=== PATIENT | male | born 1950 | race Two or more races ===

== ENCOUNTER 2016-06-11 10:11 | Outpatient (CLI) | payer MEDICARE, MEDICAID ==
[~2016-06-11 10:11] MED LIST: AMLO10TA2 PO; CARV6.252 PO
[2016-06-11 13:25] LABS: CALCIUM, SERUM 9.5 mg/dL (8.5-10.1); CREATININE 2.3 mg/dL (0.6-1.3); POTASSIUM 4.6 mmol/L (3.5-5.1)
== END 2016-06-11 23:59 | disposition home or self-care (01) ==
LOC: LAB 10:11
PROVIDERS: ATTEND Internal Medicine Interventional Cardiology
DX: I50.9 Heart failure, unspecified (principal)
CPT/HCPCS: 36415; 80048-TC

== ENCOUNTER 2016-07-09 09:58 | Outpatient (CLI) | payer MEDICARE, MEDICAID ==
[2016-07-09 10:45] LABS: CALCIUM, SERUM 9.3 mg/dL (8.5-10.1); CREATININE 2.3 mg/dL (0.6-1.3); POTASSIUM 4.5 mmol/L (3.5-5.1)
== END 2016-07-09 23:59 | disposition home or self-care (01) ==
LOC: LAB 09:58
PROVIDERS: ATTEND Internal Medicine Interventional Cardiology
DX: I50.9 Heart failure, unspecified (principal)
CPT/HCPCS: 36415; 80048-TC

== ENCOUNTER 2016-08-08 10:21 | Outpatient (CLI) | payer MEDICARE, MEDICAID ==
[2016-08-08 11:15] LABS: CALCIUM, SERUM 9.3 mg/dL (8.5-10.1); CREATININE 2.8 mg/dL (0.6-1.3); POTASSIUM 4.7 mmol/L (3.5-5.1)
== END 2016-08-08 23:59 | disposition home or self-care (01) ==
LOC: LAB 10:21
PROVIDERS: ATTEND Internal Medicine Interventional Cardiology
DX: I50.9 Heart failure, unspecified (principal)
CPT/HCPCS: 36415; 80048-TC

== ENCOUNTER 2016-08-22 09:23 | Outpatient (CLI) | payer MEDICARE, MEDICAID ==
[2016-08-22 09:52] LABS: CALCIUM, SERUM 9.3 mg/dL (8.5-10.1); CREATININE 2.8 mg/dL (0.6-1.3); POTASSIUM 4.6 mmol/L (3.5-5.1)
== END 2016-08-22 23:59 | disposition home or self-care (01) ==
LOC: LAB 09:23
PROVIDERS: ATTEND Internal Medicine Interventional Cardiology
DX: I10 Essential (primary) hypertension (principal); E78.5 Hyperlipidemia, unspecified
CPT/HCPCS: 36415; 80048-TC

== ENCOUNTER 2016-09-11 09:27 | Outpatient (CLI) | payer MEDICARE, MEDICAID ==
[2016-09-11 10:23] LABS: CREATININE 2.5 mg/dL (0.6-1.3); POTASSIUM 4.5 mmol/L (3.5-5.1)
== END 2016-09-11 23:59 | disposition home or self-care (01) ==
LOC: LAB 09:27
PROVIDERS: ATTEND Internal Medicine Interventional Cardiology
DX: I10 Essential (primary) hypertension (principal); E78.5 Hyperlipidemia, unspecified
CPT/HCPCS: 36415; 80048-TC

== ENCOUNTER 2016-10-30 10:52 | Outpatient (CLI) | payer MEDICARE, MEDICAID ==
[2016-10-30 12:29] LABS: CALCIUM, SERUM 8.9 mg/dL (8.5-10.1); CREATININE 2.3 mg/dL (0.6-1.3); POTASSIUM 3.3 mmol/L (3.5-5.1)
== END 2016-10-30 23:59 | disposition home or self-care (01) ==
LOC: LAB 10:52
PROVIDERS: ATTEND Internal Medicine Interventional Cardiology
DX: I11.0 Hypertensive heart disease with heart failure (principal); I50.9 Heart failure, unspecified
CPT/HCPCS: 36415; 80048-TC

== ENCOUNTER 2017-03-05 08:52 | Outpatient (CLI) | payer MEDICARE, MEDICAID ==
[2017-03-05 09:30] LABS: CALCIUM, SERUM 9.3 mg/dL (8.5-10.1); CREATININE 1.9 mg/dL (0.6-1.3); POTASSIUM 3.7 mmol/L (3.5-5.1)
== END 2017-03-05 23:59 | disposition home or self-care (01) ==
LOC: LAB 08:52
PROVIDERS: ATTEND Internal Medicine Interventional Cardiology
DX: I50.22 Chronic systolic (congestive) heart failure (principal)
CPT/HCPCS: 36415; 80048-TC

== ENCOUNTER 2017-04-29 10:10 | Inpatient (IN) | payer MEDICARE, MEDICAID ==
[~2017-04-29] VITALS: Ht 167.6 cm; Wt 61.7 kg
--- NOTE | 2017-04-29 10:26 | NUR ---
PATIENT TO ED DT SOB X 3 DAYS. PT RECEIVED AAO4. APPEARS IN NO APPAREST DISTRESS. PATIENT SATING 89% ON ROOM AIR. SKIN IS WARM TO TOUCH AND NON DIAPHORETIC. AFEBRILE. PATIENT WAS PLACED ON O2 VIA NC @3LPM. GOWNED PT. PENDING MD LÓPEZ
--- NOTE | 2017-04-29 10:33 | NUR ---
DANCE INSTRUCTOR AT BEDSIDE FOR BLOOD DRAW
[2017-04-29 10:43] LABS: BASOPHILS % (AUTO) 0.4 % (0.0-2.0); EOSINOPHILS # (AUTO) 0.1 /CMM (0.0-0.7); EOSINOPHILS % (AUTO) 0.9 % (0.0-6.0); HEMATOCRIT 31 % (39-51); HEMOGLOBIN 10.2 g/dL (13.5-17.5); LYMPHOCYTES # (AUTO) 0.7 /CMM (0.8-4.8); LYMPHOCYTES % (AUTO) 10.5 % (20.0-44.0); MEAN CORPUSCULAR HEMOGLOBIN 23 PG (26.0-33.0); MEAN CORPUSCULAR HGB CONC 33 g/dl (31.0-36.0); MEAN CORPUSCULAR VOLUME 72 fL (80-96); NEUTROPHILS # (AUTO) 5.1 /CMM (1.8-8.9); NEUTROPHILS % (AUTO) 74.2 % (43.0-81.0); PLATELET COUNT (AUTO) 349 /CMM (150-450); RDW COEFFICIENT OF VARIATION 18.2 (11.5-15.0); RED BLOOD CELL COUNT(AUTO) 4.34 MIL/uL (4.5-6.0); WHITE BLOOD COUNT (AUTO) 6.9 K/uL (4.3-11.0)
[2017-04-29 11:00] LABS: TROPONIN I 0.058 ng/mL (0.00-0.056)
[2017-04-29 11:02] LABS: INR 1.1 (0.87-1.13); PROTHROMBIN TIME 11.4 SECS (9.5-12.7)
[2017-04-29 11:08] LABS: ALBUMIN 2.6 g/dL (3.4-5.0); BILIRUBIN,DIRECT 0.4 mg/dL (0.0-0.2); BILIRUBIN,TOTAL 0.9 mg/dL (0.2-1.0); CALCIUM, SERUM 9.2 mg/dL (8.5-10.1); CREATININE 1.8 mg/dL (0.6-1.3); POTASSIUM 3.7 mmol/L (3.5-5.1)
[2017-04-29] MEDS ORDERED: ATOR80TA PO (11:24)
[2017-04-29] MEDS ORDERED: CARV25TA2 PO (11:24)
[2017-04-29] MEDS ORDERED: EZET10TA14 PO (11:24)
[2017-04-29] MEDS ORDERED: ISOS20TA8 PO (11:24)
[2017-04-29] MEDS ORDERED: ASPI-1152 PO (11:24)
[2017-04-29] MEDS ORDERED: CLOP75TA15 PO (11:24)
[2017-04-29] MEDS ORDERED: AMIO100T4 PO (11:24)
[2017-04-29] MEDS ORDERED: SERT50TA PO (11:24)
[2017-04-29] MEDS ORDERED: HYDR100T27 PO (11:24)
[2017-04-29 11:48] LABS: BAND % (MANUAL) 1 % (0.0-5.0); LYMPHOCYTES % (MANUAL) 7 % (16-48); MONOCYTES % (MANUAL) 8 % (0-11.0); NEUTROPHILS % (MANUAL) 84 (42-76)
--- NOTE | 2017-04-29 12:19 | NUR ---
PAGED EPIC FOR PANEL - DR RODRIGUEZ
--- NOTE | 2017-04-29 12:27 | NUR ---
[address] [facility] BED
[2017-04-29] MEDS ORDERED: ALBUTEROL FS 2.5 MG/3 ML VIAL.NEB CONTNEB ONE (12:30)
[2017-04-29] MEDS ORDERED: IPRATROPIUM NEB FS 0.5 MG/2.5 ML AMPUL.NEB NEB ONE (12:30)
[2017-04-29] MEDS ORDERED: FUROSEMIDE 20 MG/2 ML VIAL IV ONE (12:30)
[2017-04-29] MEDS ORDERED: predniSONE 20 MG TABLET PO ONE (12:30)
--- NOTE | 2017-04-29 12:54 | NUR ---
[id number]
[2017-04-29] MEDS: AMIODARONE HCL 200 MG TABLET PO SCH (12:56)
[2017-04-29] MEDS ORDERED: ALBUTEROL FS 2.5 MG/0.5 ML VIAL.NEB NEB PRN (13:00)
[2017-04-29] MEDS ORDERED: FUROSEMIDE 40 MG/4 ML VIAL IV ONE (13:00)
[2017-04-29] MEDS ORDERED: FUROSEMIDE 20 MG/2 ML VIAL ONE (13:05)
[2017-04-29] MEDS ORDERED: predniSONE 20 MG TABLET ONE (13:05)
[2017-04-29] MEDS ORDERED: ALBUTEROL FS 2.5 MG/0.5 ML VIAL.NEB ONE (13:14)
--- NOTE | 2017-04-29 13:14 | NUR ---
REPORT GIVEN TO EMELIA
[2017-04-29 14:00] VITALS: BP 130/65
--- NOTE | 2017-04-29 14:00 | NUR ---
RECEIVED PT. ALERT AND ORIENTED X4,EQUATORIAL GUINEAN SPEAKING.O2 ON 3L.
--- NOTE | 2017-04-29 14:10 | NUR ---
PT. REFUSED TO TAKE OFF LONG PANTS AND REFUSED SKIN CHECK.
[2017-04-29] MEDS: ISOSORBIDE DINITRATE (20MG) 20 MG TABLET PO SCH ×2 (15:17→17:00)
[2017-04-29 16:00] VITALS: BP 97/42
--- NOTE | 2017-04-29 16:00 | NUR ---
PT,S POX TO 90% O2 UP TO 5L TEMPORARILY.HOB ELEVATED.GIVEN ISORDIL SHORTLY BEFORE ORDERED,NOW BP A LITTLE LOW.RESP. TX CONTACTED BREATHING TX DONE.FAMILY AT BEDSIDE.
--- NOTE | 2017-04-29 16:10 | NUR ---
HUMIDIFICATION NOW ADDED TO O2.PT. SEEMS A LITTLE BETTER AFTER BREATHING TX.TAX ASSISTANT INFORMED.CONT. POX ON RANGING FROM 92% TO 96%.
[2017-04-29] MEDS: IPRATROPIUM NEB FS 0.5 MG/2.5 ML AMPUL.NEB NEB SCH ×3 (16:12→23:59)
[2017-04-29] MEDS: ALBUTEROL HALF STRENGTH 1.25 MG/3 ML VIAL.NEB NEB SCH ×3 (16:13→23:59)
[2017-04-29] MEDS: hydrALAZINE HCL 50 MG TABLET PO SCH (17:00)
[2017-04-29] MEDS ORDERED: FUROSEMIDE 20 MG/2 ML VIAL IV SCH (17:00)
[2017-04-29] MEDS: methylPREDNISolone SOD SUCC 125 MG/2ML VIAL IV SCH ×2 (17:18→21:04)
--- NOTE | 2017-04-29 17:30 | NUR ---
NO SPUTUM PRODUCTION,A LITTLE MORE RELAXED. CONSENT SIGNED FOR THORACENTESIS.
--- NOTE | 2017-04-29 19:30 | NUR ---
SENIOR ORACLE APPLICATIONS DEVELOPER NOTES BREATHING TREATMENT
--- NOTE | 2017-04-29 19:45 | NUR ---
TRIMMER LOADER NOTES RECEIVED ON BED ON HIGH FOWLERS POSITION,BREATHING NO LABORED, O2 4L.NC IN USED,A/O X3,SALINE LOCK RFA INTACT AND PATENT.GOING FOR ULTRASOUND GUIDED THORACENTESIS TOMORROW DUE BILATERAL PLEURAL EFFUSION.CONSENT ON CHART.FAMILY MEMBER AT BEDSIDE.CALL LIGHT IN REACH,NEEDS ANTICIPATED.
[2017-04-29 20:00] VITALS: BP 124/63
--- NOTE | 2017-04-29 20:00 | NUR ---
DIRECTOR SALES SUPPORT NOTES SR WITH BBB -[address] TE[address] DR CUEVA WAS PAGE FOR SLEEPING PILL ORDER. ORDERED AMBIEN 10MG PO PATIENT TAKING IT AT HOME AND FAMILY REQUEST.
[2017-04-29] MEDS: CARVEDILOL 12.5 MG TABLET PO SCH (21:04)
[2017-04-29] MEDS: ZOLPIDEM TARTRATE 10 MG TABLET PO PRN (22:46)
--- NOTE | 2017-04-29 22:46 | NUR ---
MULTIFOCAL LENS INSPECTOR NOTES C/O INSOMNIA,AMBIEN 10MG PO ADMINISTERED ORDER.
--- NOTE | 2017-04-29 23:59 | NUR ---
MS RN NOTES BREATHING TREATMENT
[2017-04-30] VITALS: BP 124/52
--- NOTE | 2017-04-30 03:00 | NUR ---
BRICK OFF BEARER NOTES PATIENT REFUSE TO BE BOTHER WHEN HIS SLEEPING,BREATHING TREATMENT NON ADMINISTERED
[2017-04-30] MEDS: ALBUTEROL HALF STRENGTH 1.25 MG/3 ML VIAL.NEB NEB SCH ×6 (03:30→23:58)
[2017-04-30] MEDS: IPRATROPIUM NEB FS 0.5 MG/2.5 ML AMPUL.NEB NEB SCH ×6 (03:30→23:58)
[2017-04-30] MEDS: methylPREDNISolone SOD SUCC 125 MG/2ML VIAL IV SCH (05:25)
--- NOTE | 2017-04-30 05:30 | NUR ---
MS RN NOTES DUE SOLU-MEDROL 60MG IV ADMINISTERED.
--- NOTE | 2017-04-30 06:19 | NUR ---
LEAD MAN OVER ALL DIES IN PATTERN SHOP NOTES SLEPT WELL WITH ARIEL,NO FALL ,NO INJURY,NO SOB NOTED,CALL LIGHT IN REACH,WILL CONTINUE TO MONITOR RESPIRATORY STATUS AND MANAGE ACCORDINGLY.WILL ENDORSE TO DAY NURSE FOR ALEX.
--- NOTE | 2017-04-30 07:10 | NUR ---
DESIGN ENGINEER PRODUCTS NOTES PATIENT ALERT AND ORIENTED X4, BREATHING EVEN AND UNLABORED, NO SOB NOTED, DENIES PAIN AT THIS TIME. NEEDS ATTENDED, KEPT COMFORTABLE. CALL LIGHT WITHIN REACH, SAFETY MEASURES IN PLACED, WILL CONTINUE TO MONITOR.
[2017-04-30 08:00] VITALS: BP 133/66
[2017-04-30] MEDS ORDERED: SERTRALINE HCL 50 MG TABLET PO SCH (09:00)
[2017-04-30] MEDS ORDERED: ASPIRIN EC 81 MG TABLET.DR PO SCH (09:00)
[2017-04-30] MEDS ORDERED: FUROSEMIDE 40 MG/4 ML VIAL IV ONE (09:00)
[2017-04-30] MEDS: CLOPIDOGREL BISULFATE 75 MG TABLET PO SCH (09:55)
[2017-04-30] MEDS: EZETIMIBE 10 MG TABLET PO SCH (09:55)
[2017-04-30] MEDS: ISOSORBIDE DINITRATE (20MG) 20 MG TABLET PO SCH ×3 (09:56→17:31)
[2017-04-30] MEDS: CARVEDILOL 12.5 MG TABLET PO SCH ×2 (09:56→20:42)
[2017-04-30] MEDS: hydrALAZINE HCL 50 MG TABLET PO SCH ×3 (09:56→17:31)
[2017-04-30] MEDS: AMIODARONE HCL 200 MG TABLET PO SCH (09:56)
--- NOTE | 2017-04-30 10:02 | NUR ---
ELECTRICAL ASSISTANT NOTES PATIENT PREFERS ASPIRIN AND SERTRALINE TO BE GIVEN AT BEDTIME. PER PATIENT HE TAKES IT AT 9PM AT HOME. DR. RODRIGUEZ MADE AWARE. RECEIVED ORDER TO CHANGE TIME. Addendum: 04/30/17 at 1007 by MAGO MALCOLM RN ADDENDUM: ASA 81 AND SERTRALINE WASTED, WITNESSED BY ANOTHER RN, JUAN SOLANO.
--- NOTE | 2017-04-30 10:15 | NUR ---
CORSETS SALESPERSON NOTES PER [employer], PATIENT'S PLAVIX NEEDS TO BE HELD 5 DAYS PRIOR TO US GUIDED THORACENTESIS. PATIENT RECEIVED PLAVIX DOSE THIS AM. INFORMED DR. RODRIGUEZ, PER MD, CHECK WITH RADIOLOGIST.CALLED [employer] AND LEFT A MESSAGE.
--- NOTE | 2017-04-30 12:00 | NUR ---
TUFTER HAND NOTES CALLED US TECH AGAIN TO FOLLOW UP RE: THORACENTESIS, NO ANSWER.
--- NOTE | 2017-04-30 15:13 | NUR ---
THORACENTESIS ON HOLD. PATIENT WAS GIVEN PLAVIX ON 04/30/17 IN THE AM. INFORMED ROSAVAE PLAVIX MUST BE HELD FOR 5 DAYS PRIOR TO PROCEDURE
[2017-04-30 16:00] VITALS: BP 130/91
--- NOTE | 2017-04-30 16:09 | NUR ---
INVENTORY WORKER NOTES CALLED US TECH, AND PAGED OVERHEAD. WAITING FOR A CALL BACK.
[2017-04-30] MEDS: FUROSEMIDE 20 MG TABLET PO SCH (17:31)
[2017-04-30] MEDS ORDERED: MENTHOL/CETYLPYRD (CEPACOL) 1 LOZ LOZENGE PO PRN (18:00)
--- NOTE | 2017-04-30 18:51 | NUR ---
FLYER BUILDER NOTES INFORMED DR. RODRIGUEZ PATIENT COMPLAINING OF SORE THROAT, RECEIVED ORDER FOR CEPACOL, ORDER NOTED AND CARRIED OUT. AWAITING FOR PHARMACY TO DELIVER MEDICATION. PATIENT ALERT AND ORIENTED X4, BREATHING EVEN AND UNLABORED, NO DISTRESS NOTED, KEPT SKIN CLEAN AND DRY, ALL NEEDS ATTENDED AND MET, CALL LIGHT WITHIN REACH, SAFETY MEASURES IN PLACED, WILL ENDORSE TO BOWSTRING MAKER FOR ALEX.
--- NOTE | 2017-04-30 19:03 | NUR ---
HEARING IMPAIRED TEACHER NOTES DR. WESTBROOK CAME AND DISCUSSED LUNG BIOPSY TO SON. PER SON, HE WILL TALK TO HIS SIBLING AND WILL DECIDE TOMORROW.
[2017-04-30 20:00] VITALS: BP 123/58
[2017-04-30] MEDS: SERTRALINE HCL 50 MG TABLET PO SCH (21:10)
[2017-04-30] MEDS: ATORVASTATIN 40 MG TABLET PO SCH (21:11)
[2017-04-30] MEDS: ASPIRIN 81 MG TAB.CHEW PO SCH (21:11)
[2017-04-30] MEDS: ZOLPIDEM TARTRATE 10 MG TABLET PO PRN (22:31)
[2017-05-01] VITALS: BP 117/58
[2017-05-01] MEDS: ALBUTEROL HALF STRENGTH 1.25 MG/3 ML VIAL.NEB NEB SCH ×6 (02:40→23:30)
[2017-05-01] MEDS: IPRATROPIUM NEB FS 0.5 MG/2.5 ML AMPUL.NEB NEB SCH ×6 (02:40→23:30)
--- NOTE | 2017-05-01 02:45 | NUR ---
RT PT REFUSED 0330 TX . PT WOULD LIKE TO GET SOME REST. NO SOB OR RESP DISTRESS NOTED AT THIS TIME.
[2017-05-01 04:00] VITALS: BP 135/59
--- NOTE | 2017-05-01 06:36 | NUR ---
INSTRUMENT REPAIRER STEAM PLANT NOTES AWAKE & RESPONSIVE. NOT IN ANY DISTRESS. NO SOB NOTED. DENIES ANY PAIN OR DISCOMFORT AT THIS TIME. ON TELE SR @ 78 WITH BBB WITH IV-HL PATENT & INTACT. MONITORED ACCORDINGLY. CALL LIGHT WITHIN REACH. BED IN LOWEST POSITION. SR UP X2 FOR SAFETY. WILL ENDORSE TO NEXT SHIFT.
--- NOTE | 2017-05-01 07:50 | NUR ---
MS RN RECEIVED ON BED, AWAKE,ALERT,ORIENTED X3,NOT IN ANY FORM OF DISTRESS, RESPIRATIONS EVEN AND UNLABORED,NO SOB NOTED, LUNGS ARE DIMINISH, ABDOMEN SOFT,POSITIVE BOWEL SOUNDS,DENIES PAIN AT THIS TIME, WILL MONITOR PATIENT'S CONDITION.
[2017-05-01 08:00] VITALS: BP 129/58
[2017-05-01] MEDS: CLOPIDOGREL BISULFATE 75 MG TABLET PO SCH (08:02)
[2017-05-01 08:08] LABS: FERRITIN 120 ng/mL (8-388)
[2017-05-01 08:18] LABS: IRON, SERUM 25 ug/dl (50-175); TOTAL IRON BINDING CAPACITY 316 ug/dl (250-450)
[2017-05-01] MEDS: methylPREDNISolone SOD SUCC 125 MG/2ML VIAL IV SCH (08:56)
[2017-05-01] MEDS: FUROSEMIDE 20 MG TABLET PO SCH (08:56)
[2017-05-01] MEDS: EZETIMIBE 10 MG TABLET PO SCH (08:56)
--- NOTE | 2017-05-01 09:00 | NUR ---
MS [place] BREAKFAST SERVED,DUE MEDS GIVEN,TOLERATED WELL.
[2017-05-01] MEDS: ISOSORBIDE DINITRATE (20MG) 20 MG TABLET PO SCH ×3 (09:01→17:00)
[2017-05-01] MEDS: CARVEDILOL 12.5 MG TABLET PO SCH ×2 (09:02→21:15)
[2017-05-01] MEDS: hydrALAZINE HCL 50 MG TABLET PO SCH ×3 (09:02→17:00)
[2017-05-01] MEDS: AMIODARONE HCL 200 MG TABLET PO SCH (09:02)
--- NOTE | 2017-05-01 09:30 | NUR ---
MS RN WAS SEEN BY DR. RODRIGUEZ, WANTS THE THORACENTESIS TO BE DONE TODAY.CALLED THE RADIOLOGY BUT MD DOES WANTS TO BE DONE TOMORROW AFTERNOON, DUE TO PLAVIX HAS BEEN GIVEN YESTERDAY.
--- NOTE | 2017-05-01 11:30 | NUR ---
MS RN ON BED W/ AT BEDSIDE, ALL NEEDS ATTENDED.
[2017-05-01 12:00] VITALS: BP 111/53
[2017-05-01 16:00] VITALS: BP 111/50
[2017-05-01] MEDS ORDERED: FUROSEMIDE 20 MG TABLET PO SCH (18:00)
--- NOTE | 2017-05-01 18:41 | NUR ---
MS RN ON BED, NO DISTRESS NOTED,WILL ENDORSE TO LENS GENERATOR FOR CONTINUITY OF CARE.
--- NOTE | 2017-05-01 19:40 | NUR ---
RN OPENING NOTES PT RESTING IN BED. SON AT BEDSIDE. NO COMPLAINTS OF PAIN, DISTRESS OR SOB AT THIS TIME. PT HAS A R FA IV, INTACT AND PATENT. PT IS ABLE TO AMBULATE SELF TO RESTROOM. PT IS SCHEDULED FOR THORACENTESIS AND BIOPSY 05/02/17 AFTERNOON. CONSENT IN CHART. SAFETY MEASURES IN PLACE. BED IN LOW LOCKED POSITION, 2XSIDERAILS UP. CALL LIGHT WITHIN REACH WILL CONTINUE TO MONITOR.
[2017-05-01 20:00] VITALS: BP 128/68
--- NOTE | 2017-05-01 20:00 | NUR ---
RN NOTES PER CHAIM MATHUR. PT REFUSED VITAL SIGNS (0000 AND 0400) Q4HR. PT STATED THAT HE WANTED UNDISTURBED SLEEP. PRIOR VITAL SIGNS WITHIN NORMAL RANGE. PT CONTINUES TO BE TELE MONITORED.
[2017-05-01] MEDS: SERTRALINE HCL 50 MG TABLET PO SCH (21:15)
[2017-05-01] MEDS: ATORVASTATIN 40 MG TABLET PO SCH (21:15)
[2017-05-01] MEDS: ASPIRIN 81 MG TAB.CHEW PO SCH (21:17)
[2017-05-01] MEDS: ZOLPIDEM TARTRATE 10 MG TABLET PO PRN (22:22)
--- NOTE | 2017-05-01 22:22 | NUR ---
RN NOTES PT REQUESTED AMBIEN FOR SLEEP. WILL ADMINISTER PRN AMBIEN 10MG. WILL CONTINUE TO MONITOR.
[2017-05-02] MEDS: ALBUTEROL HALF STRENGTH 1.25 MG/3 ML VIAL.NEB NEB SCH ×6 (03:30→23:21)
[2017-05-02] MEDS: IPRATROPIUM NEB FS 0.5 MG/2.5 ML AMPUL.NEB NEB SCH ×6 (03:30→23:21)
--- NOTE | 2017-05-02 04:18 | NUR ---
RT PT REQUESTED NOT TO BE WOKEN UP. TX HELD.
--- NOTE | 2017-05-02 06:56 | NUR ---
RN CLOSING NOTES PT SLEEPING IN BED. NO COMPLAINTS OF PAIN, DISTRESS OR SOB. PT TELE MONITORED SINUS RHYTHM WITH BBB AT A RATE OF 75. PT HAS A R FA IV, INTACT AND PATENT. PT IS ABLE TO AMBULATE SELF TO RESTROOM. PT IS SCHEDULED FOR THORACENTESIS AND BIOPSY DURING THE AFTERNOON (05/02/17). CONSENT IN CHART. SAFETY MEASURES IN PLACE. BED IN LOW LOCKED POSITION, 2XSIDERAILS UP. CALL LIGHT WITHIN REACH WILL ENDORSE TO DAY SHIFT NURSE FOR CONTINUITY OF CARE.
--- NOTE | 2017-05-02 07:51 | NUR ---
TELE/RN OPENING NOTE PATIENT IN BED IN STABLE CONDITION. A/O X 4. NO SIGNS OF ACUTE DISTRESS. NO COMPLAIN OF PAIN OR DISCOMFORT. ON TELE MONITOR WITH SINUS RHYTHM WITH BBB OF 70. ALL NEEDS ATTENDED TO. CALL LIGHT WITHIN REACH. WILL CONTINUE TO MONITOR TO ENSURE SAFETY.
[2017-05-02 08:00] VITALS: BP 125/63
[2017-05-02 08:09] LABS: IMMUNOGLOBULIN A, SERUM 247 mg/dL (61-437); IMMUNOGLOBULIN G, SERUM 1130 mg/dL (700-1600); IMMUNOGLOBULIN M, SERUM 182 mg/dL (20-172)
[2017-05-02] MEDS: AMIODARONE HCL 200 MG TABLET PO SCH (08:46)
[2017-05-02] MEDS: methylPREDNISolone SOD SUCC 125 MG/2ML VIAL IV SCH (08:46)
[2017-05-02] MEDS: hydrALAZINE HCL 50 MG TABLET PO SCH ×3 (08:46→16:29)
[2017-05-02] MEDS: EZETIMIBE 10 MG TABLET PO SCH (08:47)
[2017-05-02] MEDS: CARVEDILOL 12.5 MG TABLET PO SCH ×2 (08:47→21:22)
[2017-05-02] MEDS: ISOSORBIDE DINITRATE (20MG) 20 MG TABLET PO SCH ×3 (08:47→16:29)
[2017-05-02] MEDS ORDERED: FUROSEMIDE 40 MG TABLET PO SCH (09:00)
[2017-05-02] MEDS ORDERED: FUROSEMIDE 20 MG/2 ML VIAL IV ONE (11:00)
--- NOTE | 2017-05-02 11:00 | NUR ---
tele biofuels production technician: notes received pt in bed awake, a/ox4. at bedside. no c/o pain or any discomfort. instructed to call for assistance. will continue to monitor.
[2017-05-02 12:11] LABS: *SPE A/G RATIO 0.8 (0.7-1.7); *SPE ALBUMIN 2.7 g/dL (2.9-4.4); *SPE ALPHA-1-GLOBULIN 0.4 g/dL (0.0-0.4); *SPE ALPHA-2-GLOBULIN 0.8 g/dL (0.4-1.0); *SPE BETA GLOBULIN 0.9 g/dL (0.7-1.3); *SPE GLOBULIN, TOTAL 3.3 g/dL (2.2-3.9); *SPE M-SPIKE Not Observed g/dL (Not Observed); *SPEGAMMA GLOBULIN 1.3 g/dL (0.4-1.8)
--- NOTE | 2017-05-02 13:40 | NUR ---
tele handicraft or hobby shop manager: notes pt for thoracentesis today, pt b/p 129/59. held b/p meds and pt agreed. will continue to monitor.
[2017-05-02] MEDS ORDERED: SOD FERRIC GLUC 125 MG in IV NS 0.9% 100 ML IV SCH (14:00)
--- NOTE | 2017-05-02 14:50 | NUR ---
tele recycling program manager: notes thoracentesis completed by radiologist at bedside with 1320 of clear yellow output. stat cxr done and read by radiologist at bedside. pt tolerated procedure. 2 bottles collected and sent to pathology for testing as ordered by dr. stein (chief science officer/oncologist). remains at bedside. instructed to call for assistance. will continue to monitor.
--- NOTE | 2017-05-02 15:35 | NUR ---
tele manager roofing: notes noted iv to right forearm leaking, removed with tip intact. inserted new iv line to left upper arm, gauge #22. remains at bedside. will continue to monitor.
[2017-05-02 16:00] VITALS: BP 131/67
--- NOTE | 2017-05-02 16:03 | NUR ---
correction on fluid collection post thoracentesis: 1320 cc of dark yellow fluid was aspirated from the right pleural space.
[2017-05-02] MEDS: FUROSEMIDE 40 MG TABLET PO SCH (16:28)
--- NOTE | 2017-05-02 17:15 | NUR ---
tele paying teller: notes resting comfortable in bed with no distress noted. remains at bedside. will monitor.
--- NOTE | 2017-05-02 18:18 | NUR ---
tele specialty cook: notes resting comfortable in bed with remains at bedside. needs attended. no c/o sob or any discomfort. instructed to call for assistance. will continue to monitor.
--- NOTE | 2017-05-02 19:20 | NUR ---
RN OPENING NOTES PT RESTING IN BED. SON AT BEDSIDE. NO COMPLAINTS OF PAIN, DISTRESS OR SOB AT THIS TIME. PT HAS A R FA IV, INTACT AND PATENT. PT IS ABLE TO AMBULATE SELF TO RESTROOM. PT IS STATUS POST THORACENTESIS AND BIOPSY. SAFETY MEASURES IN PLACE. BED IN LOW LOCKED POSITION, 2XSIDERAILS UP. CALL LIGHT WITHIN REACH WILL CONTINUE TO MONITOR.
[2017-05-02 20:00] VITALS: BP 115/49
[2017-05-02] MEDS: SERTRALINE HCL 50 MG TABLET PO SCH (21:21)
[2017-05-02] MEDS: ATORVASTATIN 40 MG TABLET PO SCH (21:21)
[2017-05-02] MEDS: ASPIRIN 81 MG TAB.CHEW PO SCH (21:21)
[2017-05-02] MEDS: ZOLPIDEM TARTRATE 10 MG TABLET PO PRN (22:24)
[2017-05-03] MEDS: IPRATROPIUM NEB FS 0.5 MG/2.5 ML AMPUL.NEB NEB SCH ×3 (03:30→11:30)
[2017-05-03] MEDS: ALBUTEROL HALF STRENGTH 1.25 MG/3 ML VIAL.NEB NEB SCH ×3 (03:30→11:30)
--- NOTE | 2017-05-03 07:25 | NUR ---
RN NOTES: PATIENT AOX3. PATIENT RESTING IN BED. NONLABORED BREATHING NOTED ON ROOM AIR.NO SIGNS OF DISTRESS NOTED. PATIENT DENIES PAIN AT THE MOMENT. IV SITE PATENT AND INTACT. BED IN LOWEST LOCKED POSITION. CALL LIGHT WITHIN REACH. PATIENT ON TELE MONITORING WITH SR WITH BBB. WILL CONTINUE TO MONITOR
--- NOTE | 2017-05-03 07:43 | NUR ---
RN OPENING NOTES PT RESTING IN BED. SON AT BEDSIDE. NO COMPLAINTS OF PAIN, DISTRESS OR SOB AT THIS TIME. PT HAS A R FA IV, INTACT AND PATENT. PT IS ABLE TO AMBULATE SELF TO RESTROOM. PT IS STATUS POST THORACENTESIS AND BIOPSY. SAFETY MEASURES IN PLACE. BED IN LOW LOCKED POSITION, 2XSIDERAILS UP. CALL LIGHT WITHIN REACH WILL CONTINUE TO MONITOR. Addendum: 05/03/17 at 0744 by JYOTSNA MONAHAN RN RN CLOSING NOTES
[2017-05-03 08:00] VITALS: BP 139/69
[2017-05-03] MEDS: methylPREDNISolone SOD SUCC 125 MG/2ML VIAL IV SCH (08:13)
[2017-05-03] MEDS: AMIODARONE HCL 200 MG TABLET PO SCH (08:16)
[2017-05-03] MEDS: CARVEDILOL 12.5 MG TABLET PO SCH (08:17)
[2017-05-03] MEDS: EZETIMIBE 10 MG TABLET PO SCH (08:17)
[2017-05-03] MEDS: FUROSEMIDE 40 MG TABLET PO SCH (08:18)
[2017-05-03] MEDS: ISOSORBIDE DINITRATE (20MG) 20 MG TABLET PO SCH (08:18)
[2017-05-03 09:00] VITALS: BP 110/56
[2017-05-03] MEDS: hydrALAZINE HCL 50 MG TABLET PO SCH (09:00)
[2017-05-03] MEDS ORDERED: PRED20TA PO (11:00)
[2017-05-03] MEDS ORDERED: FURO40TA5 PO (11:00)
--- NOTE | 2017-05-03 12:39 | NUR ---
RN NOTES: PATIENT DISCHARGED HOME PER MD ORDERS. PATIENT STABLE. NONLABORED BREATHING NOTED ON ROOM AIR. PATIENT DENIES PAIN. IV LINE TAKEN OUT. PATIENT EDUCATED ON EXISTCARE AND MEDICATIONS,PATIENT VERBALIZING UNDERSTANDING. PATIENT GIVEN DR BECKER, DR WESTBROOK, AND DR CHRISTIE OFFICE INFORMATION FOR FOLLOW UP INFORMATION. PATIENT VERBALIZES UNDERSTANDING. PATIENT REFUSING FLU VACCINE, EDUCATION IMPLEMENTED. PATIENT LEFT WITH SON BREANNE VIA PRIVATE CAR, VALUABLES GIVEN TO PATIENT
== END 2017-05-03 12:35 | disposition home or self-care (01) | DRG 280 ==
LOC: ER 10:11 → TELE 13:05 → MED 05-01 12:25 → TELE 05-02 03:12 → MED 05-03 09:59
PROVIDERS: ADMIT Internal Medicine; ATTEND Internal Medicine
PROC: 0W993ZZ Drainage of Right Pleural Cavity, Percutaneous Approach (ICD-10-PCS; principal; 2017-05-02)
DX: I13.0 Hypertensive heart and chronic kidney disease with heart failure and stage 1 through stage 4 chronic kidney disease, or unspecified chronic kidney disease (principal); I21.A1 Myocardial infarction type 2; J96.21 Acute and chronic respiratory failure with hypoxia; N17.0 Acute kidney failure with tubular necrosis; E43 Unspecified severe protein-calorie malnutrition; D50.9 Iron deficiency anemia, unspecified; F17.210 Nicotine dependence, cigarettes, uncomplicated; I50.23 Acute on chronic systolic (congestive) heart failure; J90 Pleural effusion, not elsewhere classified; J44.1 Chronic obstructive pulmonary disease with (acute) exacerbation; I25.10 Atherosclerotic heart disease of native coronary artery without angina pectoris; N18.9 Chronic kidney disease, unspecified; Z95.810 Presence of automatic (implantable) cardiac defibrillator; Z95.1 Presence of aortocoronary bypass graft; E88.09 Other disorders of plasma-protein metabolism, not elsewhere classified; M62.50 Muscle wasting and atrophy, not elsewhere classified, unspecified site; Z68.22 Body mass index [BMI] 22.0-22.9, adult; J44.9 Chronic obstructive pulmonary disease, unspecified; I25.5 Ischemic cardiomyopathy; Z98.890 Other specified postprocedural states; Z86.74 Personal history of sudden cardiac arrest; R91.8 Other nonspecific abnormal finding of lung field
CPT/HCPCS: 36415; 71010-TC; 71250-TC; 76942-TC; 80048-TC; 80076-TC; 82728-TC; 82746; 82784; 83540-TC; 83605-TC; 83880; 84155; 84165; 84484-TC; 85025-TC; 85730-TC; 86334; 87040-TC; 87081-TC; 93970-TC; A4606; J1940; J2916; J2930; J7030; Z7610